=== PATIENT | male | born 1940 | race Caucasian/White ===

== ENCOUNTER 2020-04-02 18:42 | Inpatient (IN) | payer MEDICARE, OTHER ==
[~2020-04-02] VITALS: Ht 172.7 cm; Wt 132.0 kg
--- NOTE | ~2020-04-02 | EMS ---
[place] [address] EMS Patient Care Report Name: COURTNEY LEMUS Room: [address]#: [id number] Admission: 04/02/20 Attend Phys: Ortiz Nath MD Discharge: 04/06/20 Date of : 44 Report #: [id number] THIS REPORT FOR: //name// Report Transmitted: 04/08/2020 07:47 EMS Care Summary [facility] Incident [id number] @ 04/02/2020 17:39 Incident Location [address] Patient COURTNEY LEMUS Male, 79 Years 1940 Patient Address [address] [place] [address] Patient History Congestive Heart Failure (CHF),Chronic Obstructive Pulmonary Disease (COPD),Diabetes,Hypertension (HTN),Hyperlipidemia,Gastro-Esophageal Reflux Disease (GERD),Atrial Fibrillation,Constipation,Dysphagia,Sleep Apnea,Chronic Kidney Disease,Cellulitis, Patient Allergies No known allergies, Patient Medications Lasix, Prednisone, Atorvastatin, Warfarin, DuoNeb, Tradjenta, Doxazosin, Bisacodyl, Hydrocodone, Zofran, Glucagon, Ferrous Sulfate, Colace, Spironolactone, Tizanidine, Gabapentin, Miralax, Levemir, Allopurinol, Chief Complaint Weakness Disposition Transported No Lights/[place] Dispatch Reason Sick [facility] [address] [place] [address] EMS Patient Care Report Name: COURTNEY LEMUS Mlio Room: [address] IN [facility]#: [id number] Admission: 04/02/20 Attend Phys: Ortiz Nath MD Discharge: 04/06/20 Date of : 44 Report #: [id number] Dispatch: Med 1 responded to [facility] for COVID + pt with increased weakness. C/C: Weakness; SOA. Pt alert to voice. No apparent distress; non productive cough. No apparent life threats at this time. Pt is full code status. HPI/AIXA/PRINCESS: Upon EMS arrival care staff report as follows; pt tested for COVID; results showed + findings; 04/02/20. Pt has had increased weakness through out the day. Pt is normally oriented x 4; pt is now having difficulty orienting to time/event. RA sat 88%. Pt placed on 4L NC with ETCO2 monitoring. Pt moved across to cot x 4 persons. Loaded/secured via seat belt straps; high grullon position. Once loaded further assessment performed. Assessment: Primary Airway- Open, Patent, Self Maintained Breathing- Labored, Shallow, rapid, regular, titrated down to 2L NC with ETCO2 monitoring. Circulation- Strong, Radial, Reg/Irreg LOC: GCS 14, A/O x 2, person, place see detailed assessment for further information per Pt PCR Reason for Transport: increased weakness with SOA. O2 therapy required, Medical attending required. 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 Summary of Call: Pt transported to [facility] as they are an area hospital accepting COVID + pts at this time. Pt condition remained stable during transport. Radio report with infectious pt alert given 15 mins prior to ED arrival. Verbal report given to receiving RN bedside; ED Bed 3 upon transfer of care. EOR Aliya Dexter [id number] Initial Vitals @17:59P: 0,R: 0,Pain: 0/10,GCS: 15,EtCO2: 0,SpO2: 88,TN Suspected: false @18:20P: 101,R: 18,BP: 104/72,Pain: 0/10,GCS: 15,EtCO2: 32,SpO2: 99,Revised Trauma: 12, @18:35P: 96,R: 20,BP: 122/74,Pain: 0/10,GCS: 15,Temp: 99.7F,Glucose: 153,EtCO2: 31,SpO2: 94,Revised Trauma: 12, @18:05P: 88,R: 22,BP: 124/62,Pain: 0/10,GCS: 15,EtCO2: 26,SpO2: 93,Revised Trauma: 12,TN Suspected: [place] [address] EMS Patient Care Report Name: ALLANCOURTENY Room: [address] IN [facility]#: [id number] Admission: 04/02/20 Attend Phys: Ortiz Nath MD Discharge: 04/06/20 Date of : 44 Report #: [id number] @17:49MENTAL:Confused,Person Oriented,Place Oriented,SKIN:Hot,HEENT:LUNG SOUNDS:ABDOMEN:PELVIS//GI:EXTREMITIES:Left Leg: Other,Right Leg: Edema,Left Leg: Edema,Right Leg: Other,Capillary Refill: Right Upper: < 2 Sec,Capillary Refill: Left Upper: < 2 Sec,PULSE:Radial: 2+ Normal,NEURO:Other,@18:30MENTAL:No Abnormalities,SKIN:Hot,HEENT:Head/Face: No Abnormalities,Neck/Airway: No Abnormalities,LUNG SOUNDS:General: No Abnormalities,ABDOMEN:General: No Abnormalities,PELVIS//GI:EXTREMITIES:PULSE:Radial: 2+ Normal,NEURO: Impression COVID-19 - Confirmed by testing Procedures @18:0512-Lead ECGResponse: UnchangedSucceeded@17:48Oxygen FlowRate: 4 Device: CO2 Nasal Cannula Response: ImprovedSucceeded@18:15Oxygen FlowRate: 2 Device: CO2 Nasal Cannula Response: ImprovedSucceeded@17:48ALS AssessmentResponse: UnchangedSucceeded@18:05Normal Saline (.9% NaCl) 10cc (20 ga) Site: Antecubital-LeftResponse: UnchangedSucceeded@18:07Infectious Patient AlertResponse: Unchanged@PTA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Response: Unchanged 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,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,Response: Unchanged 17:37,Call Received 17:39,Dispatched 17:41,En Route 17:44,On Scene 17:46,At Patient 17:48,Oxygen FlowRate: 4 Device: CO2 Nasal Cannula Response: ImprovedSucceeded, 17:48,ALS Assessment,Response: UnchangedSucceeded, 17:59,BP: / M,PULSE: 0,RR: 0 R,SPO2: 88 Ox,ETCO2: 0 ,BG: ,PAIN: 0,GCS: 15, 18:04,Depart Scene 18:05,Normal Saline (.9% NaCl) 10cc 20 ga Site: Antecubital-Left,Response: UnchangedSucceeded, 18:05,12-Lead ECG,Response: UnchangedSucceeded, 18:05,BP: 124/62 M,PULSE: 88,RR: 22 R,SPO2: 93 Ox,ETCO2: 26 ,BG: ,PAIN: 0,GCS: 15, 18:07,Infectious Patient Alert,Response: Unchanged 18:15,Oxygen FlowRate: 2 Device: CO2 Nasal Cannula Response: ImprovedSucceeded, 18:20,BP: 104/72 M,PULSE: 101,RR: 18 R,SPO2: 99 Ox,ETCO2: 32 ,BG: ,PAIN: 0,GCS: 15, 18:35,BP: 122/74 M,PULSE: 96,RR: 20 R,SPO2: 94 Ox,ETCO2: 31 ,B,PAIN: 0,GCS: 15, 18:39,At Destination 18:57,Call Closed Disclaimer v1.1 Copyright 2020 [employer], [place] [address] EMS Patient Care Report Name: COURTNEY LEMUS Room: [address]#: [id number] Admission: 04/02/20 Attend Phys: Ortiz Nath MD Discharge: 04/06/20 Date of : 44 Report #: [id number] This EMS Care Summary contains data elements from the applicable legal record (which may be displayed differently). It is designed to provide pertinent information for the following purposes: continuity of care, clinical quality, and state data reporting. The complete legal record is available to ED staff and administrators of the receiving hospital in [facility]'s Patient Tracker. All data is provided "as is."
[2020-04-02 19:05] VITALS: BP 103/59
[2020-04-02] MEDS ORDERED: VITAMIN C500 M2 PO (19:12)
[2020-04-02] MEDS ORDERED: MILK OF MA400 MG/5 M PO (19:12)
[2020-04-02] MEDS ORDERED: LIPITOR 20 MG T20 M1 PO (19:12)
[2020-04-02] MEDS ORDERED: LEVEMIR100 UNIT/1 SUBQ (19:13)
[2020-04-02] MEDS ORDERED: IPRAT-ALBUT 0.5-3 ML INH (19:13)
[2020-04-02] MEDS ORDERED: SLOW FE142 MG PO (19:13)
[2020-04-02] MEDS ORDERED: METOLAZONE 2.52.5 M1 PO (19:14)
[2020-04-02] MEDS ORDERED: WARFARIN SODIU2.5 MG PO (19:15)
[2020-04-02] MEDS ORDERED: LASIX 40 MG TAB40 MG PO (19:15)
[2020-04-02] MEDS ORDERED: SORINE 80 MG TA80 MG PO (19:15)
[2020-04-02] MEDS ORDERED: ZOFRAN ODT4 MG PO (19:16)
[2020-04-02] MEDS ORDERED: WARFARIN SODIUM3 MG PO (19:16)
[2020-04-02] MEDS ORDERED: SPIRONOLACTONE25 MG PO (19:17)
[2020-04-02] MEDS ORDERED: ZINC SULFATE220 MG PO (19:17)
[2020-04-02] MEDS ORDERED: RAYOS5 MG PO (19:17)
[2020-04-02] MEDS ORDERED: AZITHROMYCIN500 MG PO (19:18)
[2020-04-02 19:27] LABS: ABSOLUTE BASOPHILS 0.1 thou/uL (0.0-0.2); ABSOLUTE LYMPHOCYTES 1.2 thou/uL (0.8-5.3); ABSOLUTE MONOCYTES 0.6 thou/uL (0.0-1.2); ABSOLUTE NEUTROPHILS 10.8 thou/uL (1.6-8.1); EOSINOPHILS 0.3 %; HEMATOCRIT 36.8 % (42.0-52.0); HEMOGLOBIN 12.1 gm/dL (14.0-18.0); LYMPHOCYTES 9.8 %; MCH 32.7 pg (26.0-34.0); MCHC 32.8 g/dL (28.0-37.0); MCV 99.5 fL (80.0-100.0); MONOCYTES 4.7 %; MPV 7.4 fl. (7.2-11.1); NUCLEATED RBCS 0 /100WBC; PLATELET COUNT* 174 thou/uL (150-400); POLYS 84.2 %; RDW-CV 17.6 % (10.5-14.5); WBC 12.8 thou/uL (4.0-11.0)
[2020-04-02 19:35] LABS: CALCIUM 10.9 mg/dL (8.5-10.1); CREATININE 2.3 mg/dL (0.6-1.3); POTASSIUM 4.7 mmol/L (3.5-5.1)
[2020-04-02 19:45] LABS: ALBUMIN 2.5 g/dL (3.4-5.0); TOTAL BILIRUBIN 0.5 mg/dL (<0.1-1.0)
[2020-04-02 19:50] LABS: APTT 42.5 Seconds (25.0-31.3); INR 3.3; PROTIME 32.5 Seconds (9.20-11.50)
[2020-04-02 23:00] VITALS: BP 97/53
[2020-04-02 23:37] VITALS: BP 128/67
[2020-04-03 03:30] VITALS: BP 109/65
--- NOTE | 2020-04-03 03:40 | NUR ---
PT CONFUSED AND COMBATIVE. I ENTERED ADMISSION HISTORY BEST POSSIBLE WITH NOTES FROM [facility]. HE IS RIPPING OFF HIS LEADS CONSTANTLY AND IT IS CAUSING HIS SKIN TO TEAR. HE IS INCONTINENT OF URINE, UNKNOWN LAST BM. HE IS MAX ASSIST/BED REST. HE IS WEARING 2L-O2. LOWER LEGS ARE DISCOLORED WITH BROWNISH/DARK COLORATION. HE DOES HAVE A COUGH, HOB ELEVATED. HE IS ATTEMPTING TO GET OUT OF BED NUMEROUS TIMES. OXYGEN STILL IN PLACE. CALLED DR PRIETO FOR AN ORDER TO ASSIST WITH AGITATION. OTHER THAN ABHISHEK SKIN TEAR SKIN LOOKED OK ON BOTTOM AND BACK.
[2020-04-03 08:10] VITALS: BP 110/67
--- NOTE | 2020-04-03 10:45 | EKG ---
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 : 1940 Requested By: Joaquin Victor Order Number: [id number] MD: Anand Peacock Measurements Intervals [place] Rate: 97 P: FL: QRS: 3 QRSD: 121 T: 41 QT: 392 QTc: 498 Interpretive Statements Atrial fibrillation Ventricular premature complex poor r wave progression Baseline wander in lead(s) V4 No previous ECG available for comparison Electronically Signed On 04-03-2020 10:45:40 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
[2020-04-03 10:51] LABS: URINE BILIRUBIN NEGATIVE (Negative); URINE BLOOD 2+ (Negative); URINE CLARITY CLEAR; URINE COLOR YELLOW; URINE GLUCOSE-RANDOM NEGATIVE (Negative); URINE KETONES NEGATIVE (Negative); URINE LEUKOCYTES-REFLEX NEGATIVE (Negative); URINE NITRITE-REFLEX NEGATIVE (Negative); URINE PROTEIN NEGATIVE (Negative); URINE UROBILINOGEN 0.2 E.U./dl (0.2-1.0)
[2020-04-03 11:12] LABS: BACTERIA-REFLEX 1-9 Few /HPF (None Seen); CASTS None Seen /LPF (None Seen); CRYSTALS None Seen /LPF (None Seen); MUCUS None Seen strn/LPF (None Seen); SQUAMOUS 4-10 Moderate /LPF (0-3); URINE RBC 3-10 Few /HPF (0-2); URINE WBC-REFLEX 0-5 Rare /HPF (0-5)
--- NOTE | 2020-04-03 11:30 | NUR ---
SPOKE WITH [facility] THIS AM. SHE SAID PT.IS ONE OF THEIR LTC RESIDENTS. HE IS NORMALLY ALERT ND ORIENTED. CAN AMBULATE SHORT DISCTANCE. SPENDS ALOT OF TIME IN HIS WC. PLANS FOR HIM TO RETURN TO [facility] AT DISCHARGE. FAXED [facility] PER HER REQUEST.
[2020-04-03 12:32] VITALS: BP 168/67
[2020-04-03 16:30] VITALS: BP 121/68
--- NOTE | 2020-04-03 18:40 | NUR ---
ASSESSMENT DOCUMENTED. MEDS GIVEN PER E-MAR. IV PATENT. PT REPOSITIONED THROUGH SHIFT. PICTURES OF WOUNDS TAKEN. PT COUGHING AFTER TAKING A DRINK, NOTIFIED, ORDERS RECIEVED. ISOLATION MAINTAINED. PT ON 2L NC THIS SHIFT. PTS FAMILY UPDATED ON PLAN OF CARE.
[2020-04-03 20:00] VITALS: BP 104/51
[2020-04-03 23:35] VITALS: BP 106/57
[2020-04-04 04:00] VITALS: BP 136/80
[2020-04-04 04:47] LABS: POTASSIUM 4.1 mmol/L (3.5-5.1)
[2020-04-04 04:57] LABS: HEMATOCRIT 33.8 % (42.0-52.0); HEMOGLOBIN 10.9 gm/dL (14.0-18.0); MCH 32.1 pg (26.0-34.0); MCHC 32.1 g/dL (28.0-37.0); MCV 99.9 fL (80.0-100.0); MPV 7.6 fl. (7.2-11.1); NUCLEATED RBCS 0 /100WBC; PLATELET COUNT* 188 thou/uL (150-400); RBC 3.38 mil/uL (4.50-6.00); RDW-CV 17.9 % (10.5-14.5); WBC 14.2 thou/uL (4.0-11.0)
[2020-04-04 05:30] LABS: INR 3.8; PROTIME 37.3 Seconds (9.20-11.50)
[2020-04-04 05:41] LABS: ABSOLUTE LYMPHOCYTES 0.4 thou/uL (0.8-5.3); ABSOLUTE MONOCYTES 0.3 thou/uL (0.0-1.2); ABSOLUTE NEUTROPHILS 13.5 thou/uL (1.6-8.1); ANISOCYTOSIS 1+; PLATELET ESTIMATE ADEQUATE
--- NOTE | 2020-04-04 06:51 | NUR ---
ASSUMED CARE OF PT AFTER REPORT AT 1930. PT A&OX4. VSS. PHYSICAL ASSESSMENT COMPLETED AND CHARTED. PT ON O2 AT 2L NC. PT TRACING AFIB ON TELE. PT TURNED TO SIDES. PT COMPLAINED OF LEFT HAND PAIN-MED GIVEN PER MAR. FALL PRECAUTIONS IN PLACE. CALL LIGHT WITHIN REACH.
[2020-04-04 08:30] VITALS: BP 132/77
--- NOTE | 2020-04-04 11:05 | NUR ---
Nutrition: pt admitted with COVID + status, PRITI, CKD, encephalopathy from [place]. On modified solids/liquids per ST due to mild dysphagia. No intake records available yet. BMI 44.9, extreme class 3 obesity with no weight hx. Pt seen due to wound indication which is noted to be a healing sacral wound and chest/arm skin tears. PMH: DM, CHD, CKD3, dysphagia, COPD. BG 189-297. Will add Carb controlled to diet order and offer glucerna daily til po trends are established. Place as low risk with interventions in place.
[2020-04-04 12:00] VITALS: BP 139/75
--- NOTE | 2020-04-04 14:24 | NUR ---
WOUND NURSE: PATIENT SEEN TO ADDRESS 2 SKIN TEARS AND ONE PRESSURE INJURY. COCCYGEAL PRESSURE INJURY MEASURES 1.0 X 1.0 X 0.7 CM WOUND BED CONTAINS LIGHT YELLOW FIBROUS MATERIAL IN THE BASE OF THE WOUND BED AND SMALL AMOUNT OF SEROUSANGUINOUS DRAINAGE. LEFT CHEST WALL SKIN TEAR MEASURES 1.5 X 3.5 X 0.1 CM, CONTAINS RED, NONGRANULATING TISSUE IN THE WOUND BED. LEFT UPPER ARM SKIN TEAR MEASURES 4.0 X 4.0 X 0.1 CM, CONTAINS RED NONGRANULATING TISSUE IN THE WOUND BED. SEE INTERVENTIONS FOR ADDITIONAL INFORMATION. LOW AIRLOSS MATTRESS ORDERED FOR PATIENT BECAUSE HE REQUIRES MAXIMAL ASSIST WITH REPOSITIONING. PATIENT INSTRUCTED ON REPOSITIONING TO OFFLOAD STAGE 4 PRESSURE INJURY. INJURY
--- NOTE | 2020-04-04 15:28 | NUR ---
IF PT.DISCHARGED OVER THE WEEKEND, [facility]. CALL FACILITY TO SPEAK WITH CHARGE NURSE. [facility]-[phone].
[2020-04-04 16:00] VITALS: BP 145/81
--- NOTE | 2020-04-04 18:22 | NUR ---
ASSESSMENT DOCUMENTED. MEDS GIVEN PER E-MAR. IV PATENT, FLUIDS INFUSING. NO REPORTS OF PAIN THIS SHIFT. PT REFUSED SOME REPOSITIONS THIS SHIFT. PT AGGITATED AT BEGINING OF SHIFT, THROWING URNIAL AND URINE AT STAFF. PT MORE ALERT DAY PROGRESSED. FALL PRECAUTIONS IN PLACE. ISOLATION MAINTAINED.
[2020-04-04 20:00] VITALS: BP 144/77
[2020-04-05] VITALS: BP 139/73
[2020-04-05 04:00] VITALS: BP 137/77
[2020-04-05 04:17] LABS: INR 3.9; PROTIME 37.9 Seconds (9.20-11.50)
--- NOTE | 2020-04-05 05:34 | NUR ---
ASSUMED CARE OF PT AFTER REPORT AT 1930. PT A&OX4. VSS. PHYSICAL ASSESSMENT COMPLETED AND CHARTED. PT ON RA. PT TRACING AFIB ON TELE. PT TURNED TO SIDES. PT WITH EPISODES OF INCONTINENT BLADDER. PT DENIES PAIN. PT ABLE TO SLEEP WELL ON BED. CALL LIGHT WITHIN REACH.
[2020-04-05 08:05] VITALS: BP 149/85
[2020-04-05 10:11] LABS: ABSOLUTE BASOPHILS 0.1 thou/uL (0.0-0.2); ABSOLUTE LYMPHOCYTES 0.6 thou/uL (0.8-5.3); ABSOLUTE MONOCYTES 0.4 thou/uL (0.0-1.2); ABSOLUTE NEUTROPHILS 14.8 thou/uL (1.6-8.1); BASOPHILS 0.5 %; HEMATOCRIT 36.3 % (42.0-52.0); HEMOGLOBIN 11.8 gm/dL (14.0-18.0); LYMPHOCYTES 3.7 %; MCH 32.9 pg (26.0-34.0); MCHC 32.6 g/dL (28.0-37.0); MONOCYTES 2.4 %; MPV 7.7 fl. (7.2-11.1); NUCLEATED RBCS 0 /100WBC; PLATELET COUNT* 210 thou/uL (150-400); POLYS 93.4 %; RBC 3.59 mil/uL (4.50-6.00); RDW-CV 17.9 % (10.5-14.5); WBC 15.8 thou/uL (4.0-11.0)
[2020-04-05 11:08] LABS: ALBUMIN 2.4 g/dL (3.4-5.0); CREATININE 1.7 mg/dL (0.6-1.3); POTASSIUM 3.9 mmol/L (3.5-5.1); TOTAL BILIRUBIN 0.3 mg/dL (<0.1-1.0)
[2020-04-05 14:19] VITALS: BP 145/88
[2020-04-05 18:02] VITALS: BP 147/90
--- NOTE | 2020-04-05 19:05 | NUR ---
PT AWAKE/ALERT. PT VERY MASHPEE. PT ON KENIA BED. A FIB ON MONITOR, CHRONIC. LG BM THIS SHIFT, INCONTINENT. DISCOLORATION OBSERVED TO BLE, EXISTING AT TIME OF ASSUMING CARE. IV TO LAC AND L HAND PATENT. PT ACCUCHECK, INSULIN ADMINISTERED ORDERED. PT REMAINS ON ROOM AIR. PT SPOUSE UPDATED BY PHONE THIS SHIFT. PT USES CALL LIGHT FREQUENTLY. PT CALLS OUT REPEATEDLY TO ASK IF HE HAS DISCHARGE PAPERS YET AND TO ASK HOW TO USE CALL LIGHT. PT RESTS IN BED WITH CALL IGHT IN REACH, WILL CONTINUE TO MONITOR.
[2020-04-05 20:00] VITALS: BP 153/82
[2020-04-06] VITALS: BP 142/70
--- NOTE | 2020-04-06 04:19 | NUR ---
PT A&O X 3-4, VSS ON RA. MEDS GIVEN ORDERED. INCONTINENT. NO C/O PAIN. DRESSING TO COCCYX INTACT. PT PULLED OUT HIS IV AND SAID HE DOESNT REMEMBER WHY HE DID. REFUSING TURNS, EDUCATION GIVEN. PT WILL BE TRANSFERED TO [facility]. CALL LIGHT WITHIN REACH. WILL CONTINUE TO MONITOR.
[2020-04-06 05:09] LABS: ABSOLUTE LYMPHOCYTES 0.6 thou/uL (0.8-5.3); ABSOLUTE MONOCYTES 0.4 thou/uL (0.0-1.2); ABSOLUTE NEUTROPHILS 11.2 thou/uL (1.6-8.1); HEMOGLOBIN 12.4 gm/dL (14.0-18.0); LYMPHOCYTES 4.6 %; MCH 32.1 pg (26.0-34.0); MCHC 31.8 g/dL (28.0-37.0); MCV 101.1 fL (80.0-100.0); MONOCYTES 3.1 %; MPV 7.4 fl. (7.2-11.1); NUCLEATED RBCS 0 /100WBC; PLATELET COUNT* 216 thou/uL (150-400); POLYS 92.3 %; RBC 3.86 mil/uL (4.50-6.00); RDW-CV 18.5 % (10.5-14.5); WBC 12.2 thou/uL (4.0-11.0)
[2020-04-06 05:19] LABS: PREALBUMIN 31.3 mg/dL (18.0-35.7)
[2020-04-06 05:23] LABS: INR 3.6; PROTIME 35.4 Seconds (9.20-11.50)
[2020-04-06 05:31] LABS: ALBUMIN 2.4 g/dL (3.4-5.0); CALCIUM 9.8 mg/dL (8.5-10.1); CREATININE 1.6 mg/dL (0.6-1.3); POTASSIUM 3.3 mmol/L (3.5-5.1); TOTAL BILIRUBIN 0.5 mg/dL (<0.1-1.0); TOTAL PROTEIN 6.8 g/dL (6.4-8.2)
[2020-04-06 06:00] VITALS: BP 144/88
[2020-04-06 08:10] VITALS: BP 135/79
[2020-04-06] MEDS ORDERED: PROTONIX40 M2 PO (09:31)
[2020-04-06] MEDS ORDERED: PREDNISONE 10 M10 MG PO (09:31)
[2020-04-06] MEDS ORDERED: DOXYCYCLINE 10100 MG PO (09:31)
--- NOTE | 2020-04-06 10:25 | NUR ---
CM INFORMED BY THE PHYSICIAN OF PLAN TO D/C PT BACK TO HIS LTC FACILITY [facility] TODAY. CM CONTACTED PT'S SPOUSE TO INFORM OF THE PT'S RETURN TO [facility] AND SHE IS IN AGREEMENT. CM INFORMED CHARGE NURSE AT [facility] OF THE PT'S RETURN AND THE THE RN WILL CONACT HER TO GIVE REPORT. CM PROVIDED RN WITH NUMBER FOR REPORT AND ARRANGED TRASNPORT FOR 1200 WITH [facility] NON-EMERGENT TRANSPORT PER RN REQUEST. CM WILL REMAIN AVAILABLE TO ASSIST AND FOLLOW NEEDED. [facility] PHONE: [phone] FAX: [phone]
--- NOTE | 2020-04-06 12:40 | NUR ---
PT AWAKE/ALERT VSS. DRESSING TO COCCYX C/D/I. A FIB ON MONITOR, CHRONIC. PT INTERMITTENTLY INCONTINENT OF B/B. ACCUCHECK, SLIDING SCALE INSULIN ADMINISTERED ORDERED. PT REMAINS ON ROOM AIR, SAT 95%. PT ON LOW AIRLOSS BARIATRIC BED OF NOC SHIFT. Q2 TURNS WHEN PT ALLOWS REPOSITIONING. PT REFUSES HEELS ELEVATED. IV TO ABHISHEK CASAREZ. REPORT CALLED TO NURSE FISH AT [facility] [phone]. PT LEFT UNIT ON STRETCHER WITH CJCFD. FAMILY NOTIFIED BY CASE MGMNT.
== END 2020-04-06 12:45 | DRG 177 ==
LOC: M.ERS 18:42 → M.ORTHSURG 20:15 → M.TBA-ER 20:15 → M.ORTHSURG 23:15
PROVIDERS: Family Medicine; Internal Medicine; ADMIT Internal Medicine; ATTEND Internal Medicine
DX: U07.1 COVID-19 (principal); J12.89 Other viral pneumonia; G92 Toxic encephalopathy; J96.01 Acute respiratory failure with hypoxia; N17.9 Acute kidney failure, unspecified; R65.10 Systemic inflammatory response syndrome (SIRS) of non-infectious origin without acute organ dysfunction; E11.22 Type 2 diabetes mellitus with diabetic chronic kidney disease; E86.0 Dehydration; N18.30 Chronic kidney disease, stage 3 unspecified; E83.52 Hypercalcemia; Z79.4 Long term (current) use of insulin; Z79.01 Long term (current) use of anticoagulants; Z79.899 Other long term (current) drug therapy; I50.9 Heart failure, unspecified; J44.9 Chronic obstructive pulmonary disease, unspecified